=== PATIENT | female | born 1980 | race Caucasian/White ===

== ENCOUNTER 2017-01-08 17:40 | Emergency (ER) | payer OTHER ==
[2017-01-08 17:46] VITALS: BP 102/60; PULSE 68; TEMP 97.7; BMI 26.2
[2017-01-08 19:02] LABS: BASOPHIL 0.7 % (0-2.0); EOSINOPHIL 2.5 % (0-4.5); MCH 28.8 pg (25.7-33.7); MCHC 32.9 g/dl (32.0-36.0); MEAN CELL VOLUME 87.6 fl (80-96); MEAN PLT VOLUME 8.1 fl (7.5-11.1); NEUTROPHILS 53.3 % (42.8-82.8); PLATELET COUNT 326 K/MM3 (134-434); WHITE BLOOD COUNT 8.5 K/mm3 (4.0-10.0)
--- NOTE | 2017-01-08 19:05 | PDOC ---
Post Exposure HPI - General Chief Complaint: Non EmpBld/Body Flud Exposure Stated Complaint: NEEDLE STICK Time Seen by Provider: 01/08/17 18:04 History Source: Patient Exam Limitations: No Limitations - History of Present Illness Initial Comments: 01/08/17 19:09 PT WAS REFERRED BY [facility] NEEDLE STIK AT WORK TO; USED LANCET FROM [facility] PT Timing: this afternoon (~3P) Past History - Past Medical History Allergies/Adverse Reactions: Allergies No Known Allergies Allergy (Verified 01/08/17 17:46) Home Medications: Ambulatory Orders Folic Acid - 1 mg PO DAILY 12/06/15 Vit/Iron Fumarate/FA [ Tablet] 1 each PO DAILY 12/06/15 Ibuprofen [Motrin -] 600 mg PO QID #120 tablet 02/29/16 - Social History Smoking Status: Never smoked Review of Systems - Review of Systems Constitutional: No: Chills, Fever Respiratory: No: Cough Integumentary: Yes: Other (STUCK RIGHT MIDDLE FINGER TIP) Hematologic/Lymphatic: Yes: Other *Physical Exam - Vital Signs Last Vital Signs Temp Pulse Resp BP Pulse Ox 97.7 F 68 20 102/60 96 01/08/17 17:41 01/08/17 17:41 01/08/17 17:41 01/08/17 17:41 01/08/17 17:41 - Physical Exam General Appearance: No: Appropriately Dressed HEENT: positive: TMs Normal, Pharynx Normal Integumentary: positive: Other (NO ) Medical Decision Making - Medical Decision Making 01/08/17 19:15 THRU TRANSLATION DOES WANT LABS; DOESNT WANT MEDS AT THIS TIME; WILL GET SOURCE PT TESTED ALLEY *DC/Admit/Observation/Transfer Diagnosis at time of Disposition: Needle stick, hypodermic, accidental Qualifiers: Encounter type: initial encounter Qualified Code(s): W46.0XXA - Contact with hypodermic needle, initial encounter - Discharge Dispostion Disposition: HOME Condition at time of disposition: Stable Admit: No - Referrals Referrals: Kassi Mejia MD [Primary Care Provider] - - Patient Instructions Additional Instructions: PLEASE RETURN AT ANY TIME FOR MEDICATION; AND CAN RETURN TO ED TOMORROW FOR LAB RESULTS - Post Discharge Activity Work/School Note: Back to Work
[2017-01-08 19:47] LABS: ALBUMIN 4.1 g/dl (3.4-5.0); ALK PHOS 78 U/L (45-117); ANION GAP 4 (8-16); BILIRUBIN,TOTAL 0.4 mg/dL (0.2-1.0); CALCIUM 9.5 mg/dL (8.5-10.1); CO2 32 mmol/L (21-32); CREATININE 0.6 mg/dL (0.55-1.02); GLUCOSE,RANDOM 88 mg/dL (74-106); SGOT/AST 14 U/L (15-37); SGPT/ALT 21 U/L (12-78); TOT PROT 7.4 g/dl (6.4-8.2)
[2017-01-08 21:10] LABS: HIV 1 & 2 AB NEGATIVE; HIV 1 AGp24 NEGATIVE
== END 2017-01-08 19:42 | disposition home or self-care (01) ==
LOC: JERFT 17:40
DX: Z77.21 Contact with and (suspected) exposure to potentially hazardous body fluids (principal); S61.232A Puncture wound without foreign body of right middle finger without damage to nail, initial encounter; W46.1XXA Contact with contaminated hypodermic needle, initial encounter; Y93.F9 Activity, other caregiving; Y92.89 Other specified places as the place of occurrence of the external cause; Y99.0 Civilian activity done for income or pay
CPT/HCPCS: 36415; 80053; 85025; 86704; 86706; 86803; 87389; 99281-25

== ENCOUNTER 2018-10-23 08:40 | Emergency (ER) | payer OTHER ==
[2018-10-23 08:50] VITALS: BP 98/51; PULSE 72; TEMP 97.9; BMI 26.4
[2018-10-23] MEDS ORDERED: diphenhydrAMINE HCL 25 MG CAPSULE (FP) PO ONE ×2 (09:11→09:25)
--- NOTE | 2018-10-23 09:17 | PDOC ---
History of Present Illness - General Chief Complaint: Rash Stated Complaint: FULL BODY RASH Time Seen by Provider: 10/23/18 08:57 History Source: Patient Exam Limitations: No Limitations - History of Present Illness Initial Comments: 10/23/18 09:11 Patient came to emergency department for evaluation of rash that started yesterday. States started itching yesterday around noon, and by 5:00 Multiple areas, generalized rash of worsened itching lesions. States is uncertain as to cause, has never had any anaphylaxis or ALLERGIC reaction to any foods, creams, soaps or other products that are known. States has not taken any recent new pills, vitamins or antibiotics. No one else at home is suffering from rash. Patient denies fever, URI symptoms. Denies exposure that are known to other infectious persons. Has taken no medications for relief of same. Timing/Duration: reports: getting worse Severity: Yes: mild, moderate Location: reports: generalized Respiratory Risk Factors: reports: no cause identified Past History - Travel Traveled outside of the country in the last 30 days: No Close contact w/someone who was outside of country & ill: No - Past Medical History Allergies/Adverse Reactions: Allergies Allergy/AdvReac Type Severity Reaction Status Date / Time No Known Allergies Allergy Verified 10/23/18 08:48 Home Medications: Ambulatory Orders Cetirizine HCl [Zyrtec -] 10 mg PO DAILY #30 tablet 10/23/18 predniSONE [Deltasone -] 20 mg PO BID #10 tablet 10/23/18 Asthma: No Cancer: No Cardiac Disorders: No COPD: No Diabetes: No HTN: No Seizures: No Thyroid Disease: No - Immunization History Immunization Up to Date: Yes - Suicide/Smoking/Psychosocial Hx Smoking History: Never smoked Have you smoked in the past 12 months: No Information on smoking cessation initiated: No Hx Alcohol Use: No Drug/Substance Use Hx: No Substance Use Type: None Hx Substance Use Treatment: No Review of Systems - Review of Systems Able to Perform ROS?: Yes Is the patient limited Lithuanian proficient: Yes Constitutional: Yes: See HPI. No: Symptoms Reported, Fever, Loss of Appetite, Malaise HEENTM: Yes: See HPI. No: Symptoms Reported, Nose Congestion, Mouth Swelling Respiratory: Yes: See HPI. No: Symptoms reported, Cough, Orthopnea, Wheezing ABD/GI: Yes: See HPI. No: Symptoms Reported, Nausea Integumentary: Yes: Symptoms Reported, See HPI, Lesions, Pruritus, Rash All Other Systems: Reviewed and Negative *Physical Exam - Vital Signs Last Vital Signs Temp Pulse Resp BP Pulse Ox 97.9 F 72 17 98/51 L 99 10/23/18 08:48 10/23/18 08:48 10/23/18 08:48 10/23/18 08:48 10/23/18 08:48 - Physical Exam General Appearance: Yes: Nourished, Appropriately Dressed HEENT: positive: LAXMI, Normal ENT Inspection, Normal Voice, Symmetrical, TMs Normal, Pharynx Normal Neck: positive: Supple. negative: Lymphadenopathy (R), Lymphadenopathy (L) Respiratory/Chest: positive: Lungs Clear, Normal Breath Sounds. negative: Wheezing Gastrointestinal/Abdominal: positive: Soft. negative: Tender Integumentary: positive: Moist, Rash (erythematous pain lesions with some wheal- type appearance covering all of body including dorsum of feet, arms legs abdomen back and neck. Has some same type lesions to forehead and cheeks. 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 We'll treat with antihistamines and short course of prednisone *DC/Admit/Observation/Transfer Diagnosis at time of Disposition: Rash and nonspecific skin eruption - Discharge Dispostion Disposition: HOME Condition at time of disposition: Stable Decision to Admit order: No - Referrals - Patient Instructions Printed Discharge Instructions: DI for Rash Additional Instructions: Rest, keep cool and dry- avoid strenuous activity or hot /humid environments Less hot showers, no abrasive soaps May use heavy creams like Eucerin or Cetaphil to keep skin moist May apply Aveeno, calamine lotion, [id number] hydrocortisone creams as needed for symptoms May use Benadryl at night for antihistamine, Zyrtec/ Korin or Claritin for daytime antihistamine use to help with itching Continue short course of prednisone as directed until completed 5 days Try to identify cause for rash and avoid exposures Followup with PMD in one week if no resolution Make appointment with development manager for evaluation when possible - Post Discharge Activity
== END 2018-10-23 09:46 | disposition home or self-care (01) ==
LOC: JERFT 08:40
DX: T78.40XA Allergy, unspecified, initial encounter (principal); R21 Rash and other nonspecific skin eruption; X58.XXXA Exposure to other specified factors, initial encounter
CPT/HCPCS: 84703; 99281-25

== ENCOUNTER 2022-11-02 19:46 | Emergency (ER) | payer OTHER ==
[2022-11-02 19:54] VITALS: BP 112/63; PULSE 99; RESP 20; TEMP 98.4; BMI 25.9
[2022-11-02] MEDS ORDERED: FAMOTIDINE 20 MG/50 ML IVPB 20 MG/50 ML MG IVPB ONE ×2 (20:43→21:01)
[2022-11-02] MEDS ORDERED: ONDANSETRON 4 MG/2 ML VIAL IVPUSH ONE (20:43)
[2022-11-02] MEDS ORDERED: LACTATED RINGERS SOLUTION 1000 ML INFUS.BAG IV ONE (20:43)
[2022-11-02] MEDS ORDERED: MAG HYDROX/AL HYDROX/SIMETH -MYLANTA- ORAL SUSPENSION PO ONE (20:43)
[2022-11-02] MEDS ORDERED: ACETAMINOPHEN 1000 MG/100 ML BAG IVPB ONE (20:44)
[2022-11-02] MEDS ORDERED: ACETAMINOPHEN INJECTION 100 ML IVPB ONE (20:59)
[2022-11-02] MEDS ORDERED: ONDANSETRON 4 MG/2 ML VIAL ONE (21:00)
[2022-11-02] MEDS ORDERED: MAG HYDROX/AL HYDROX/SIMETH 30 ML UNIT-DOSE CUP ONE (21:00)
[2022-11-02 22:09] LABS: BASO % 0.2 % (0-2.0); EOS % 0.2 % (0-4.5); HEMATOCRIT 40.3 % (32.4-45.2); HEMOGLOBIN 14.1 GM/dL (10.7-15.3); LYMPH % 5.5 % (8-40); MCH 30.8 pg (25.7-33.7); MCHC 35.1 g/dl (32.0-36.0); MEAN CELL VOLUME 87.7 fl (80-96); MEAN PLT VOLUME 7.6 fl (7.5-11.1); MONO % 6.6 % (3.8-10.2); NEUT % 87.5 % (42.8-82.8); PLATELET COUNT 333 10^3/uL (134-434); RBC 4.59 M/mm3 (3.60-5.2); RDW 12.9 % (11.6-15.6); WHITE BLOOD COUNT 11.1 K/mm3 (4.0-10.0)
[2022-11-02 22:17] LABS: INR 1.26 (0.83-1.09); PROTHROMBIN TIME (PATIENT) 14.6 SEC (9.7-13.0)
[2022-11-02 22:19] LABS: ACTIVATED PTT 38.7 SECONDS (25.2-36.5)
[2022-11-02] MEDS ORDERED: METOCLOPRAMIDE HCL INJECTION 10 MG/2 ML VIAL IVPB ONE (22:27)
[2022-11-02 22:32] LABS: CALCIUM 8.7 mg/dL (8.5-10.1)
[2022-11-02 22:33] LABS: ALBUMIN 3.8 g/dl (3.4-5.0); BLOOD UREA NITROGEN 17.6 mg/dL (7-18)
[2022-11-02 22:36] LABS: CREATININE 0.5 mg/dL (0.55-1.3)
[2022-11-02 22:37] LABS: BILIRUBIN,TOTAL 1.3 mg/dL (0.2-1); TOT PROT 6.9 g/dl (6.4-8.2)
[2022-11-02] MEDS ORDERED: METOCLOPRAMIDE HCL INJECTION 10 MG/2 ML VIAL ONE (22:40)
[2022-11-02] MEDS ORDERED: PROCHLORPERAZINE INJECTION 10 MG/2 ML VIAL IVPB ONE (23:41)
[2022-11-02] MEDS ORDERED: PROCHLORPERAZINE INJECTION 10 MG/2 ML VIAL ONE (23:45)
== END 2022-11-03 00:23 | disposition home or self-care (01) ==
LOC: JER 19:46
PROC: 3E033GC Introduction of Other Therapeutic Substance into Peripheral Vein, Percutaneous Approach (ICD-10-PCS; principal; 2022-11-02)
PROC: 3E033NZ Introduction of Analgesics, Hypnotics, Sedatives into Peripheral Vein, Percutaneous Approach (ICD-10-PCS; 2022-11-02)
PROC: 3E033GC Introduction of Other Therapeutic Substance into Peripheral Vein, Percutaneous Approach (ICD-10-PCS; 2022-11-02)
PROC: 3E033GC Introduction of Other Therapeutic Substance into Peripheral Vein, Percutaneous Approach (ICD-10-PCS; 2022-11-02)
PROC: 3E033GC Introduction of Other Therapeutic Substance into Peripheral Vein, Percutaneous Approach (ICD-10-PCS; 2022-11-02)
DX: R10.11 Right upper quadrant pain (principal); R11.2 Nausea with vomiting, unspecified; R19.7 Diarrhea, unspecified; B34.9 Viral infection, unspecified; Z20.822 Contact with and (suspected) exposure to COVID-19
CPT/HCPCS: 0241U-QW; 36415; 71046-TC-FY; 76705-TC; 80053; 83690; 83735; 84484; 84703; 85025; 85610; 85730; 86850; 86900; 86901; 93005; 93010; 99285-25

== ENCOUNTER 2023-02-04 15:56 | Emergency (ER) | payer OTHER ==
[2023-02-04 16:03] VITALS: BP 116/70; PULSE 81; RESP 19; TEMP 97.9; BMI 25.7
== END 2023-02-04 17:36 | disposition home or self-care (01) ==
LOC: JERFT 15:56 → JER 15:56 → JERFT 17:36
DX: M25.571 Pain in right ankle and joints of right foot (principal); X50.0XXA Overexertion from strenuous movement or load, initial encounter
CPT/HCPCS: 73610-TC-RT-FY; 73630-TC-RT-FY; 99283-25

== ENCOUNTER 2023-04-27 20:39 | Emergency (ER) | payer OTHER ==
[2023-04-27 20:47] VITALS: BP 106/63; PULSE 69; RESP 16; TEMP 98.5; BMI 25.9
== END 2023-04-27 22:15 | disposition home or self-care (01) ==
LOC: FER 20:39
DX: S93.402A Sprain of unspecified ligament of left ankle, initial encounter (principal); M25.572 Pain in left ankle and joints of left foot; X50.1XXA Overexertion from prolonged static or awkward postures, initial encounter
CPT/HCPCS: 73610-TC-LT-FY; 99283-25